=== PATIENT | male | born 1995 | race Caucasian/White ===

== ENCOUNTER 2017-06-23 20:07 | Inpatient (IN) | payer BC, SELFPAY ==
[2017-06-23] MEDS ORDERED: Acetaminophen 325 MG TAB PO PRN (21:08)
[2017-06-23] MEDS ORDERED: Ondansetron HCl/PF 4 MG/2 ML Vial SLOW IVP PRN (21:10)
[2017-06-23] MEDS ORDERED: guaiFENesin ER 600 MG TAB PO SCH (21:15)
[2017-06-23] MEDS: Sodium Chloride 0.9% 1,000 ML IV SCH (21:54)
[2017-06-23] MEDS: Azithromycin 500 MG in Sodium Chloride 0.9% 250 ML 250 ML IVPB SCH (21:54)
[2017-06-23] MEDS ORDERED: cefTRIAXone\\ROCEPHIN 2 GM in Sodium Chloride 0.9% 100 ML IVPB SCH (22:00)
[2017-06-24 05:17] LABS: #Eosinphils 0.2 thou/uL (0.0-0.7); #Lymphocytes 2.1 thou/uL (1.20-3.40); #Monocytes 1.2 thou/uL (0.11-0.59); #Neutrophils 8.2 thou/uL (1.40-6.50); %Basophils 0.2 % (0.0-1.0); %Eosinophils 1.3 % (0.0-10.0); %Lymphocytes 17.8 % (28.0-48.0); %Monocytes 10.6 % (0.0-4.0); Hematocrit 41.6 % (42.0-52.0); Mean Platelet Volume 6.6 fL (7.4-10.4); Red Blood Cell (RBC) Count 4.59 mill/uL (4.00-5.20); White Blood Cell (WBC) Count 11.6 thou/uL (4.8-10.8)
[2017-06-24] MEDS: guaiFENesin ER 600 MG TAB PO SCH ×2 (08:05→19:21)
[2017-06-24] MEDS: Sodium Chloride 0.9% 1,000 ML IV SCH ×3 (08:07→16:30)
[2017-06-24] MEDS ORDERED: methylPREDNISolone Sod Succ/PF 125 MG/2 ML VIAL IVP STA (10:15)
[2017-06-24] MEDS ORDERED: Fentanyl 100 MCG/2 ML VIAL SLOW IVP SCH (10:15)
[2017-06-24] MEDS ORDERED: Ketorolac Tromethamine 30 MG/ML VIAL IVP PRN (10:16)
--- NOTE | 2017-06-24 10:19 | RAD ---
PA AND LATERAL CHEST XRAY: DATE: 06/24/17. HISTORY: Pulmonary mass. COMPARISON: None available. FINDINGS: There is an vague patchy opacity seen within the right hilar region on the frontal projection which i s not well visualized on the lateral view but is worrisome for pneumonia. The left lung is clear. H eart and mediastinal structures are within normal limits. There is right convex curvature of the tho racic spine. IMPRESSION: 1. Pneumonia right mid lung zone which is not well seen on the lateral view. Followup to complete r esolution is recommended. 2. Mild right convex scoliosis thoracic spine. POS: [facility]
[2017-06-24] MEDS ORDERED: Sterile Water 10 ML ONE (10:24)
[2017-06-24] MEDS ORDERED: Ketorolac Tromethamine 30 MG/ML VIAL IVP SCH (10:30)
[2017-06-24] MEDS: Piperacillin/Tazobactam 4.5 GM in Sodium Chloride 0.9% 100 ML IVPB SCH ×2 (12:32→17:39)
[2017-06-24] MEDS: HYDROcodone/Acetaminophen 5/325 mg Tablet PO PRN ×2 (12:36→19:19)
--- NOTE | 2017-06-24 14:01 | CT ---
CHEST CT WITH IV CONTRAST: DATE: 06/24/17. COMPARISON: None. HISTORY: Pulmonary mass, pneumonia. TECHNIQUE: Serial axial CT imaging obtained at 5 mm intervals from the thoracic inlet through the upper abdomen with IV contrast. Coronal reformatted imaging obtained. FINDINGS: Mildly enlarged axillary node on the right noted measuring up to 1 cm. Mildly enlarged pretracheal l ymph node measures 1.1 cm in short axis dimension. Mild right hilar alejandro prominence present, measuring in the 1 cm range in short axis dimension. No l eft hilar adenopathy. Prominent subcarinal node measures in the 1.3 cm range. The imaged upper abdomen appears grossly unremarkable. No pericardial or mediastinal fluid. No left pleural effusion seen. There is a small right pleural effusion present with adjacent atelectatic change involving the inferi or aspect of the right lower lobe. There is a lobulated mass-like area of focal opacity within the right lower lobe posteriorly, abuttin g the above-described pleural effusion. This mass-like area of focal opacity measures 2.9 x 2.2 x 3. 0 cm. Centrally, it demonstrates a lobulated hypodensity, best seen on the coronal image 1 of 3. No endobronchial lesion is seen. No pneumothorax is evident on either side. The left upper lobe, le ft lower lobe, right upper lobe, and right middle lobe appear grossly unremarkable. Of note, the pul monary parenchyma adjacent to the mass likely area of posterior right lower lobe parenchymal opacity demonstrates hazy increased density. Osseous structures appear unremarkable. Vascular structures appear patent. There is a mild degree of scoliotic curvature of the thoracic spine. There is a mild area of superio r end plate irregularity involving the T11 and T12 vertebral bodies suggesting old fractures and/or S chmorl's nodes. IMPRESSION: Focal area of irregular mass-like opacity within the posterior aspect of the right upper lobe with merino rrounding inflammatory reticulonodular density. This abuts a small right pleural effusion. The most likely etiology for this is a focal area of necrotizing pneumonia with possible developing pulmonary abscess and adjacent parapneumonic effusion. Necrotizing pneumonia can be seen with typical and atyp ical organisms, including tuberculosis. Short-term followup imaging following treatment is advised to exclude the unlikely possibility of a p ulmonary neoplastic process. The lymphadenopathy noted in the chest is likely reactive in nature. Results of the study discussed with Dr. Moore at approximately 11:30 a.m. 06/24/17. CODE CR POS: [facility]
--- NOTE | 2017-06-24 15:06 | CON ---
DATE OF CONSULTATION: 06/24/2017 CONSULTING PHYSICIAN: Harlan Moore M.D. REASON FOR CONSULTATION: Potential lung mass. HISTORY OF THE PRESENT ILLNESS: This is a 21-year-old male who is a student at [employer]. He presen camila to the [facility] emergency room yesterday complaining of cough for the last week prior to evaluat ion, he had developed right-sided back pain. This morning, that pain has now spread to the inferior aspect of his anterior chest on the right. He has had some subjective fever. PAST MEDICAL HISTORY: Unremarkable. PAST SURGICAL HISTORY: None. ALLERGIES: None. MEDICATIONS PRIOR TO ADMISSION: None. SOCIAL HISTORY: Nonsmoker. Does not consume alcohol. He is a college student at [employer]. REVIEW OF SYSTEMS: He has had subjective fever and chills, he had right-sided chest pain other than his 12 point review of systems is negative. PHYSICAL EXAMINATION: VITAL SIGNS: Temperature 99.0, pulse 89, respirations 20, O2 sat 96%, blood pressure 112/72. GENERAL: He is in pain. He is difficult to examine secondary to the pain. HEENT: Pupils react. Sclerae are anicteric. Oropharynx is clear. NECK: No JVD. LUNGS: He has diminished breath sounds in the right base compared to the left. No crackles. CARDIAC: S1 and S2 regular, without murmur. ABDOMEN: Soft, nontender. EXTREMITIES: No edema. LABORATORY DATA AND X-RAY FINDINGS: White blood cell count 11.6, hematocrit 41.6, and platelet count 254. Chemistries: Sodium 138, potassium 3.9, chloride 98, CO2 28, BUN 16, creatinine 0.8, and gluc ose 106. CT of the chest from [facility] emergency room demonstrated a 2-3 cm area of consolidation t hat is rounded sitting on top of a small pleural effusion on the right. He has some subcarinal lymph adenopathy. ASSESSMENT: I suspect the patient has pneumonia and has developed a parapneumonic pleural effusion a nd possibly even an empyema. I am less suspicious of this being malignancy given the time course of illness. RECOMMENDATIONS: 1. Dr. Moore has ordered a repeat CT scan today. If the effusion has increased in size, it may shashi ant a thoracentesis. Right now, the fluid is so small that it would be difficult to tap this based o n the earlier CT scan. 2. Continue IV antibiotics - Rocephin and Zithromax should be fine. 3. Add IV steroids. 4. Pain medication. Thank you for the referral. I will follow.
--- NOTE | 2017-06-24 15:11 | HP ---
DATE OF ADMISSION: 06/23/2017 CHIEF COMPLAINT: Right lower lobe pneumonia with right lower lobe mass and right pleural effusion. 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 He is also in the [employer] who has been noticing over the last month an increasing per sisting cough. It was mainly at night and he would continue with PT and his usual activities over th e next 3 weeks until finally he was noticing increasing shortness of breath and having sweats [facility]. He pushed to this and did a 6-mile run several days ago. He started to have actually right-sided back pain that was very annoying and finally went into [facility] care on the day of admission for fu rther evaluation of actually the back pain. His cough was nonproductive. His fever and sweats were mainly at night. He noticed increased fatigue and need for sleep in [facility] care and got a chest x -ray, which revealed the right lower lobe mass and infiltrate with which they then got a CAT scan, wh ich further delineated a right pulmonary effusion, a 3 cm right lower lobe mass and secondary consoli dation/atelectasis. He has begun running fever; however, more indicative of pneumonia. His white co unt, however, has remained low at 11,000. [facility] contacted Dr. Moore, who works as there observation specialist who elected to admit him for further evaluation. PAST MEDICAL HISTORY: The patient had no prior hospitalizations. He is not fractured any bones. He has had a couple of stitches. He had no prior surgeries. Diagnosis of asthma for which he has not been compliant with his inhalers. SOCIAL HISTORY: He is single, sophomore in [employer] major in [employer]. Does n ot smoke or drink alcoholic beverages. ALLERGIES: He has no known drug allergies. REVIEW OF SYSTEMS: CONSTITUTIONAL: Finally admits to fever, malaise and sweats. HEENT: Denies headaches, eye discharge, pain in nose, ears or mouth, or lesions. NECK: Pain free with normal range of motion. No masses. CHEST: Significant for the right-sided pain with motion and deep breath and cough, but it is nonprod uctive. HEART: Denies palpitations, tachycardia or chest pain in the cardiac area. ABDOMEN: Soft, nontender. He denies nausea, vomiting or diarrhea. GENITOURINARY: Denies pain with urination or frequency. MUSCULOSKELETAL: Denies any muscle or joint pain, edema or redness. LYMPHATICS: Denies any edema. NEUROLOGIC: He has trouble with mentation focusing this study, but denies headaches, blurred vision, hallucinations or delusions. SKIN: Denies acute rashes or lesions. MEDICATIONS: None. Does not use inhalers previously recommended by his shield operator. PHYSICAL EXAMINATION: VITAL SIGNS: Blood pressure 101/58, pulse 81, respirations 18, temperature 98.8. He weighs 167 poun ds. GENERAL: Generally well-developed, well-nourished male, alert, oriented, and cooperative. HEENT: Normocephalic and atraumatic. Pupils equal, round, and reactive to light. Sclerae are clear , pharynx clear. NECK: Supple, trachea midline, no mass. CHEST: With actually good breath sounds bilaterally. Unable to appreciate rales, rhonchi, slightly diminished breath sounds on the right with dull percussion. HEART: Regular rate and rhythm without murmur. ABDOMEN: Soft, nontender, without organomegaly. GENITOURINARY: Deferred. No hernia. EXTREMITIES: Without clubbing, cyanosis, or edema. Normal range of motion present. Symmetrical mus cular tone development noted. SKIN: Without acute rashes or lesions. NEUROLOGIC: Cranial nerves are intact. Gait and cerebellar function untested at this time. Sensory exam is intact. Mental status is clear. LABORATORY AND X-RAY FINDINGS: Lab work from admission shows WBC 11.3, hemoglobin 13.4, hematocrit 3 9.7, platelets at 207. Sodium 138, potassium 3.9, chloride 98, CO2 28, BUN 16, creatinine 0.8. Ches t x-ray showed a rounded density in the right perihilar region with moderate right pleural effusion a nd moderate scoliosis. CT of the chest revealed a 3 cm right lower lobe mass with right pleural effu vika, pulmonary consolidation in the right lung base, initially thought to be atelectasis, but with r egular fever at this point, it was felt to be secondary pneumonia. ASSESSMENT: 1. Right lower lobe mass. 2. Right pleural effusion. 3. Secondary right lower lobe pneumonia. 4. History of asthma. 5. Scoliosis. PLAN: Continue IV antibiotics until cultures returned with more specific treatment. Continue DuoNeb treatments, continue supportive care. Pulmonary consultation to evaluate the possibility of tapping the effusion and/or bronchoscoping and getting a biopsy and oncology consultation for further evalua tion as well. We will treat with antipyretics and antiemetics as needed and serial reevaluation.
--- NOTE | 2017-06-24 17:28 | CON ---
DATE OF CONSULTATION: 06/24/2017 REASON FOR CONSULTATION: Abnormal chest imaging. HISTORY OF PRESENT ILLNESS: The patient is a 21-year-old member of the [employer], an d sophomore at [employer], who was admitted for further evaluation of chest pain and fever. 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 On , he developed the abrupt onset of f ever, chills, sweats, and increasing back pain with a possible slight pleuritic component. A chest x -ray was performed and showed a probable pneumonia in the right mid lung zone. He was admitted for f urther evaluation and treatment. He has been placed on broad spectrum antibiotics and a CT scan of t he chest has been performed. The CT scan of the chest did confirm a mass-like infiltrate abutting th e pleura in the right pleura in the right lower lobe associated with a pleural effusion. The mass-li ke infiltrate looks more inflammatory/infectious than malignant. There are a few small mediastinal l ymph nodes measuring up to 1.3-1.5 cm. I am asked to see the patient to provide further management r ecommendations from an oncologic standpoint. PAST MEDICAL HISTORY: ALLERGIES: None. MEDICATIONS: None chronically. MEDICAL ILLNESS: There is a history of asthma with no other significant medical problems. SURGERY: No significant surgical procedures. SOCIAL HISTORY: He is a [place] [employer] sophomore [place] [address]. His mother and father are present durin g the evaluation. Does not smoke or drink excessively. REVIEW OF SYSTEMS: Except as mentioned in the history of present illness, he denies significant card iopulmonary, GI, , musculoskeletal, or neurological complaints. PHYSICAL EXAMINATION: VITAL SIGNS: Temperature 99.0, pulse 89 and regular, respirations 20, blood pressure 112/72. GENERAL: The patient is a well-developed and well-nourished young man in mild distress, complaining of some back pain. He is slightly lethargic secondary to analgesic medication. However, he is appro priate in conversation. HEENT: Extraocular movements are intact. Pupils equal, round, and reactive to light. NECK: Supple. LUNGS: There are decreased breath sounds on the right lower chest. CARDIOVASCULAR: Regular rate and rhythm without murmur, rub, gallop, or click. ABDOMEN: No tenderness, organomegaly, masses, bruits or ascites. EXTREMITIES: No clubbing, cyanosis or edema. SKIN: Normal. LYMPH: No adenopathy. MUSCULOSKELETAL: No active arthritis. NEUROLOGIC: No focal findings. Cranial nerves II-XII are grossly intact. LABORATORY: White blood cell count 11.6, hemoglobin 13.6, and platelet count 254,000. White blood c ell differential shows 70 neutrophils, 17 lymphocytes, 10 monocytes, 1 eosinophil, and 1 basophil. IMAGING: See history of present illness. IMPRESSION: Abrupt onset of fever, chills, and right-sided chest pain associated with a dry cough. The clinical setting and imaging as described above is most consistent with pneumonia with either a p eripneumonic effusion or empyema. The mass-like infiltrate, when discussed with Radiology, is most c onsistent with an inflammatory/infection as opposed to tumor. RECOMMENDATIONS: As the findings are most consistent with an infectious process, I would recommend c ontinued IV antibiotics. Unfortunately, there is no evidence of malignancy at present. Suggest a pu lmonary consultation if not already obtained for further evaluation of the effusion. Infectious Dise ase consultation might also be considered. Thanks very much for allowing me to provide my recommendations. I will follow as needed.
[2017-06-24] MEDS: Azithromycin 500 MG in Sodium Chloride 0.9% 250 ML 250 ML IVPB SCH (23:10)
[2017-06-25] MEDS: Piperacillin/Tazobactam 4.5 GM in Sodium Chloride 0.9% 100 ML IVPB SCH ×5 (00:45→23:16)
[2017-06-25] MEDS: Sodium Chloride 0.9% 1,000 ML IV SCH ×4 (03:00→19:52)
[2017-06-25 06:27] LABS: ALT (SGPT) 17 U/L (8-55); AST (SGOT) 15 U/L (10-45); Alkaline Phosphatase 72 U/L (Less than 750); Anion Gap 13 mmol/L (10-20); BUN (Urea Nitrogen) 16 mg/dL (8.4-21.0); Bilirubin, Total 0.4 mg/dL (0.2-1.2); Calc. Creatinine Clearance 145 mL/min (70-130); Calcium 9.3 mg/dL (7.8-10.44); Carbon Dioxide 25 mmol/L (22-29); Chloride 107 mmol/L (98-107); Estimated GFR-MDRD Greater than 90; Globulin 3.2 g/dL (2.4-3.5); Protein, Total 6.9 g/dL (6.0-8.3)
[2017-06-25 06:37] LABS: Band 6 % (5-11); Hematocrit 40.8 % (42.0-52.0); Mean Platelet Volume 6.7 fL (7.4-10.4); Neutrophil 89 % (31-61); Red Blood Cell (RBC) Count 4.49 mill/uL (4.00-5.20); White Blood Cell (WBC) Count 25.1 thou/uL (4.8-10.8)
[2017-06-25] MEDS: HYDROcodone/Acetaminophen 5/325 mg Tablet PO PRN ×2 (07:03→23:14)
[2017-06-25] MEDS: guaiFENesin ER 600 MG TAB PO SCH ×2 (07:03→21:33)
[2017-06-25] MEDS: Benzonatate 100 MG CAP PO PRN (07:03)
--- NOTE | 2017-06-25 12:43 | PRG ---
DATE OF SERVICE: 06/25/2017 Judd feels better this morning. No acute complaints. PHYSICAL EXAMINATION: VITAL SIGNS: Temperature is 98.3, pulse 99, respirations 16, O2 saturation 98%, blood pressure 109/6 3. HEENT: Unremarkable. NECK: No JVD. LUNGS: Mildly diminished breath sounds in the right base and some crackles there. Clear on the left . CARDIAC: S1 and S2 regular. ABDOMEN: Soft. EXTREMITIES: No edema. LABORATORY DATA: White blood cell count 25, hematocrit 40, platelet count 309. Sodium 141, potassiu m 3.8, BUN 16, creatinine 0.8, glucose 189. ASSESSMENT 1. Pneumonia. 2. Small parapneumonic pleural effusion. 3. Hyperglycemia secondary to steroids for the pleurisy. PLAN: 1. I would recommend continuing the IV antibiotics. 2. Recheck a chest x-ray tomorrow to make sure the effusion is not increasing. 3. Hopefully can go home by tomorrow or Monday if he is doing well. He will need approximately 14 days of antibiotics and will need to lay off physical training with the [employer] at [employer] for e rest of the semester.
--- NOTE | 2017-06-25 13:31 | PRG ---
DATE OF SERVICE: 06/25/2017 SUBJECTIVE: The patient had a decent night. I did get a phone call this morning for cough. I gave him some Tessalon Perles and that did seem to work. He is still having some pain in his chest; howev er, he is getting medication for that. His dad is at bedside and states he did ambulate and little b it yesterday, and he did get up in the chair. OBJECTIVE: GENERAL: Upon evaluation, he is awake, he is alert. He is on oxygen. VITAL SIGNS: His blood pressure is 109/60, pulse 100 and respirations 20. He is afebrile. NECK: Supple with no increased JVP or carotid bruit. Carotid had good upstroke with no thyromegaly. COR: Regular rate and rhythm with normal first and second heart sounds normal. No murmur, S3, S4 or thrills. CHEST: Few crackles. ABDOMEN: Soft, nontender with normoactive bowel sounds. No bruit or organomegaly. EXTREMITIES: No edema or cyanosis. Palpable pedal pulses. SKIN: There is no evidence of ulcers lesion or rash. NEUROLOGIC: He is awake, alert and oriented to person, place and time. LABORATORY DATA: His CBC showed a white blood cell of 25.1, his hemoglobin and hematocrit is 13.3 an d 40.8. His platelets are 309. His chemistry showed elevated glucose of 189. ASSESSMENT: 1. Pneumonia with effusion. 2. Para-pneumothorax versus the empyema. 3. No evidence of cancer. PLAN: 1. We will continue the same current treatment. We will follow up with a chest x-ray, CBC and CMP i n the morning. 2. I have encouraged the patient to ambulate and sit up in the chair during the day and work on ____ cough and deep breathing. The patient's dad verbalized understanding and all questions answered to satisfaction.
[2017-06-25] MEDS ORDERED: Metoprolol Tartrate 25 MG TAB PO SCH (16:45)
[2017-06-25] MEDS: Azithromycin 500 MG in Sodium Chloride 0.9% 250 ML 250 ML IVPB SCH (21:32)
[2017-06-26] MEDS: Benzonatate 100 MG CAP PO PRN ×3 (02:07→16:16)
[2017-06-26] MEDS: Sodium Chloride 0.9% 1,000 ML IV SCH ×4 (02:34→23:12)
[2017-06-26] MEDS: Piperacillin/Tazobactam 4.5 GM in Sodium Chloride 0.9% 100 ML IVPB SCH ×4 (05:09→23:15)
[2017-06-26 05:13] LABS: #Lymphocytes 0.7 thou/uL (1.20-3.40); #Neutrophils 22.5 thou/uL (1.40-6.50); %Eosinophils 0.1 % (0.0-10.0); Hematocrit 38.3 % (42.0-52.0); Mean Platelet Volume 6.8 fL (7.4-10.4); Red Blood Cell (RBC) Count 4.22 mill/uL (4.00-5.20); White Blood Cell (WBC) Count 24.2 thou/uL (4.8-10.8)
[2017-06-26 05:45] LABS: ALT (SGPT) 20 U/L (8-55); AST (SGOT) 19 U/L (10-45); Alkaline Phosphatase 68 U/L (Less than 750); Anion Gap 10 mmol/L (10-20); BUN (Urea Nitrogen) 15 mg/dL (8.4-21.0); Bilirubin, Total 0.2 mg/dL (0.2-1.2); Calc. Creatinine Clearance 186 mL/min (70-130); Carbon Dioxide 26 mmol/L (22-29); Chloride 109 mmol/L (98-107); Estimated GFR-MDRD Greater than 90; Globulin 2.8 g/dL (2.4-3.5); Protein, Total 6.1 g/dL (6.0-8.3)
[2017-06-26] MEDS ORDERED: Ketorolac Tromethamine 30 MG/ML VIAL IVP SCH (06:15)
--- NOTE | 2017-06-26 07:54 | RAD ---
EXAM: CHEST 2 VIEWS: COMPARISON: 06/24/17. HISTORY: Pulmonary mass. Pneumonia. FINDINGS: Stable cardiac silhouette. Stable opacification of the lung parenchyma. Small left and right-sided pleural effusions. Patchy interstitial opacities. Consolidation with air bronchograms in the left l ower lobe. IMPRESSION: 1. Consolidation with air bronchograms left lower lobe. 2. Patchy interstitial opacities. 3. Small bilateral pleural effusions. The degree of opacification in the left lower lobe has develo ped when compared to the prior examination. POS: [facility]
[2017-06-26] MEDS: guaiFENesin ER 600 MG TAB PO SCH ×2 (08:33→20:24)
--- NOTE | 2017-06-26 10:23 | PRG ---
DATE OF SERVICE: 06/26/2017 The patient is doing better. He had some pleurisy yesterday, was [facility] because of some tachycardia that seems to be associated with breathing treatments more than anyth ing else. Looking at his tracings it was sinus tachycardia. PHYSICAL EXAMINATION: VITAL SIGNS: Temperature is 98.4, pulse 111, respirations 24, O2 sat 91% on 2 liters, blood pressure 116/57. HEENT: Unremarkable. NECK: No JVD. CHEST: Fairly clear. ABDOMEN: Soft. EXTREMITIES: No edema. Chest x-ray shows bilateral lower lobe infiltrates and small effusions. ASSESSMENT: Community-acquired pneumonia. PLAN: Continue antibiotics, steroids and pain management. He might be able to go home tomorrow if samy brand has a good day today. I would think any tachycardia that he has is strictly due to his underlying illness and not a cardiac arrhythmia.
[2017-06-26] MEDS ORDERED: Sterile Water 10 ML ONE (12:05)
[2017-06-26] MEDS: Ibuprofen 200 MG TAB PO SCH ×3 (12:21→23:15)
[2017-06-26] MEDS: Azithromycin 500 MG in Sodium Chloride 0.9% 250 ML 250 ML IVPB SCH (21:14)
[2017-06-27] MEDS: Benzonatate 100 MG CAP PO PRN (03:55)
[2017-06-27 05:46] LABS: #Lymphocytes 1.2 thou/uL (1.20-3.40); #Monocytes 0.9 thou/uL (0.11-0.59); #Neutrophils 19.3 thou/uL (1.40-6.50); %Basophils 0.1 % (0.0-1.0); %Eosinophils 0.1 % (0.0-10.0); %Lymphocytes 5.5 % (28.0-48.0); Hematocrit 37.3 % (42.0-52.0); Mean Platelet Volume 6.5 fL (7.4-10.4); Red Blood Cell (RBC) Count 4.09 mill/uL (4.00-5.20); White Blood Cell (WBC) Count 21.4 thou/uL (4.8-10.8)
[2017-06-27 06:02] LABS: Anion Gap 10 mmol/L (10-20); BUN (Urea Nitrogen) 14 mg/dL (8.4-21.0); Calc. Creatinine Clearance 191 mL/min (70-130); Calcium 8.7 mg/dL (7.8-10.44); Carbon Dioxide 25 mmol/L (22-29); Chloride 107 mmol/L (98-107); Estimated GFR-MDRD Greater than 90
[2017-06-27] MEDS: Ibuprofen 200 MG TAB PO SCH ×4 (06:13→23:32)
[2017-06-27] MEDS: Piperacillin/Tazobactam 4.5 GM in Sodium Chloride 0.9% 100 ML IVPB SCH ×4 (06:14→23:32)
[2017-06-27] MEDS: Sodium Chloride 0.9% 1,000 ML IV SCH (06:14)
[2017-06-27] MEDS: guaiFENesin ER 600 MG TAB PO SCH ×2 (08:19→20:28)
[2017-06-27] MEDS: HYDROcodone/Acetaminophen 5/325 mg Tablet PO PRN (08:20)
--- NOTE | 2017-06-27 08:37 | PRG ---
DATE OF SERVICE: 06/27/2017 The patient is still coughing. He does have a headache today, probably secondary to coughing. He is still short of breath, he is still wheezing. However, he is not coughing near as much as he was yes terday. PHYSICAL EXAMINATION: GENERAL: He is awake, alert, and oriented at his bedside. VITAL SIGNS: Blood pressure 120/60, pulse 88, respiration 16, he is afebrile. NECK: Supple with no increased JVP or carotid bruit. Carotid had good upstroke with no thyromegaly. COR: Regular rate and rhythm. CHEST: Scattered wheezing. ABDOMEN: Soft, nontender with normoactive bowel sounds. There is no bruit or organomegaly. EXTREMITIES: No edema or cyanosis. Palpable pedal pulses. SKIN: There is no evidence of ulceration lesion, or rash. NEUROLOGIC: He equal hand grasp bilaterally. PSYCHIATRIC: Alert and oriented to person, place, and time. LABORATORY DATA: White blood cells 21.4, H&H is 12.1 and 37.3, platelet is 325. ASSESSMENT: 1. Pneumonia. 2. Asthma. PLAN: 1. We will change Solu-Medrol to 40 mg IV b.i.d. 2. We will get out of bed and ambulate. 3. We will check a chest x-ray and CBC in the morning. 4. Hopefully, the patient will be able to go home within the next few days.
--- NOTE | 2017-06-27 10:05 | PRG ---
DATE OF SERVICE: 06/27/2017 SUBJECTIVE: He feels better. He is having less chest pain. PHYSICAL EXAMINATION: VITAL SIGNS: On exam, temperature 97.7, pulse 68, respirations 16, O2 sat 90% on 2 liters, blood pre ssure 120/60. HEENT: Unremarkable. NECK: No JVD. LUNGS: Slightly diminished breath sounds at the bases. CARDIAC: S1 and S2 regular. ABDOMEN: Soft. EXTREMITIES: No edema. LABORATORY DATA: White blood cell count 21, hematocrit 37, and platelet count 325. Sodium 138, pota ssium 3.9, chloride 107, CO2 25, BUN 14, creatinine 0.7, glucose 144. ASSESSMENT: Pneumonia. RECOMMENDATIONS: 1. Switch him over to oral azithromycin. 2. Agree with steroid taper. 3. Discontinue IV fluids. 4. Likely can go home as early as tomorrow.
--- NOTE | 2017-06-27 14:11 | PQF ---
CLINICAL DOCUMENTATION IMPROVEMENT CLARIFICATION FORM: ICD-10 Updated PLEASE DO AN ADDENDUM TO THE PROGRESS NOTE WITH ANY DOCUMENTATION UPDATES OR ADDITIONS AND CARRY THROUGH TO DC SUMMARY. THANK YOU. DATE: 06/27/17 ATTN: Dr. Moore Please exercise your independent, professional judgment in responding to the clarification form. Clinical indicators are provided on the bottom of this form for your review Please check appropriate box(s): [ ] Empirically treating Gram Negative Pneumonia [ ] Empirically treating Anaerobic Pneumonia [ ] Pneumonia secondary to (specify organism / underlying disease) [ ] Simple Pneumonia (community acquired - nosocomial) [ ] Pneumonia of unknown etiology [ x ] Other diagnosis __atypical pneumonia [ ] Unable to determine For continuity of documentation, please document condition throughout progress notes and discharge summary. Thank You. CLINICAL INDICATORS - SIGNS / SYMPTOMS / LABS H&P: WBC 11.3 R PLEURAL EFFUSION SECONDARY R LL PNEUMONIA PULMONARY PN 06/26: COMMUNITY-ACQUIRED PNEUMONIA RISKS: H&P: HX OF ASTHMA PN 06/25: PNEUMONIA WITH EFFUSION TREATMENT: CPOE 06/24: ZOSYN 4.5 GM 100ML IV Q6 HR CPOE 06/27: ZITHROMAX 250MG PO DAILY Thank you, Lsia (This form is maintained as a part of the permanent medical record) 2015 [employer]. All Rights Reserved Lisa Baker RN, BSN [email or web address] Office: [phone] [facility]
[2017-06-28 05:15] LABS: #Lymphocytes 1.4 thou/uL (1.20-3.40); #Monocytes 0.8 thou/uL (0.11-0.59); #Neutrophils 15.5 thou/uL (1.40-6.50); %Basophils 0.2 % (0.0-1.0); %Eosinophils 0.1 % (0.0-10.0); %Lymphocytes 8.1 % (28.0-48.0); %Monocytes 4.4 % (0.0-4.0); Hematocrit 38.9 % (42.0-52.0); Mean Platelet Volume 6.4 fL (7.4-10.4); White Blood Cell (WBC) Count 17.8 thou/uL (4.8-10.8)
[2017-06-28] MEDS: Piperacillin/Tazobactam 4.5 GM in Sodium Chloride 0.9% 100 ML IVPB SCH (05:19)
[2017-06-28] MEDS: Ibuprofen 200 MG TAB PO SCH (05:19)
[2017-06-28] MEDS ORDERED: Ibuprofen 200 MG TAB PO PRN (07:53)
[2017-06-28] MEDS: guaiFENesin ER 600 MG TAB PO SCH ×2 (08:35→20:24)
[2017-06-28] MEDS: Amoxicillin/Potassium Clav 875 MG TAB PO SCH ×2 (08:35→20:24)
[2017-06-28] MEDS: Azithromycin 250 MG TAB PO SCH (08:35)
[2017-06-28] MEDS: predniSONE 20 MG TAB PO SCH ×2 (08:35→20:24)
--- NOTE | 2017-06-28 09:03 | RAD ---
TWO VIEW CHEST: History: Pneumonia follow up. Comparison: 06-26-17 FINDINGS: There continues to be streaky confluent infiltrate in the left posterior lung base. There continues t o be evidence of small bilateral effusions. Lungs remain well aerated and clear. IMPRESSION: No significant interval change. POS: [facility]
--- NOTE | 2017-06-28 10:10 | PRG ---
DATE OF SERVICE: 06/28/2017 He has had problems with bradycardia overnight. He says his chest pain is better and he is not short of breath. PHYSICAL EXAMINATION: VITAL SIGNS: Temperature is 98.1, pulse is between 44 and 57, O2 sat 95% on 2 liters, blood pressure 126/65. HEENT: Unremarkable. NECK: No JVD. CHEST: Clear without wheezing or crackles. CARDIAC: S1, S2, bradycardic. ABDOMEN: Soft. EXTREMITIES: No edema. LABORATORY DATA: White blood cell count 17.8, hematocrit 38.9, platelet count 363. Sodium 130, pota ssium 3.9, chloride 107, CO2 25, BUN 14, creatinine 0.7, glucose 144. His chest x-ray is clearing. ASSESSMENT: 1. Pneumonia, which is improved. 2. Bradycardia - this may be his baseline. 3. Possible underlying sleep apnea. PLAN: 1. Dr. Troncoso is going to evaluate the patient today. The EKG and echocardiogram have already been pe rformed. 2. The patient was switched to oral antibiotics and looks safe to discharge from a pulmonary standpo int provided the cardiology issues are clear. 3. He will need a sleep study as an outpatient.
--- NOTE | 2017-06-28 11:08 | CON ---
DATE OF CONSULTATION: 06/28/2017 CARDIOLOGY CONSULTATION NOTE INDICATION FOR CONSULTATION: Bradycardia in 21-year-old patient. HISTORY OF PRESENT ILLNESS: This is a very otherwise healthy 21-year-old patient who was admitted on 06/23/2017, who what appeared to be pneumonia. He has been treated by antibiotic therapy. He has h ad some tachycardia when he first arrived, most likely due to fever and due to illness. He has been doing well and has been recovering, but does say he has some fatigue. His father is here at the [facility] and said he does sleep a lot sometimes and falls asleep during class but at this time, it does no t appear to be an issue. He is fatigued, but has been lying in bed for several days now and has been sick. He had bradycardia last night with heart rates in the 40s. This morning, his heart rate was in the 50s. When he moves around, his heart rate was in the 70s. He is a very active young man, who participates in the chore. He does do a lot of exercise and running and most likely this is an ayana cation that most likely he is getting better and most likely intrinsically he does not have any signi ficant tachycardia and there are no significant EKG changes to indicate any other abnormalities that would indicate any bundle branch blocks that may indicate some type of endocarditis or infection subv alvular that may cause conduction problems. He does not appear to be septic at this time. His EKG d id show some T-wave inversions in leads V2 and V3 with RSR prime in V1, but this is just nonspecific findings with T-wave changes and does not appear to be any evidence of ischemia or any other problems . He has had these EKG changes also on previous EKGs since he has been in the hospital. Otherwise, there are no significant abnormalities noted on the EKG. PAST MEDICAL HISTORY: Relatively unremarkable. His father said he had problem since he was a child and has had mitral valve prolapse, but it was felt that he would grow out of these and for whatever r jennifer, I do not see in any case he has any mitral valve prolapse, so echocardiogram was performed tokevin spencer. Otherwise, his past medical history has been relatively unremarkable. He has had no significant previous illnesses. He has history of asthma and has infrequent flareups. He has had no significan t surgical procedures. SOCIAL HISTORY: There is no alcohol or tobacco abuse, as noted above. He is a student of [employer] and he is a member of [employer] and does significant amount of exercise. REVIEW OF SYSTEMS: Unremarkable except what was noted in the history of present illness. He denied any other significant problems except for sleepiness. ALLERGIES: None. MEDICATIONS PRIOR TO ADMISSION: None. At this time, his medications still includes Augmentin, Zithr omax. He is on Tessalon Perles, Mucinex, ibuprofen. He has also been giving some [place] as well as s ome DuoNebs and Zofran. He has been placed on prednisone. PHYSICAL EXAMINATION: GENERAL: Reveals a well-developed, well-nourished gentleman who is in no acute distress. VITAL SIGNS: His heart rate is anywhere between 40-70 and shows sinus rhythm without any significant interventricular abnormalities and no significant conduction problems otherwise. He is afebrile. O 2 saturations are in the 90s. Respiratory rate is 16. Blood pressure is 126/65. HEENT: Shows head to be normocephalic, atraumatic. Carotid pulses are present. There were no bruit s. There is no JVD. The thyroid is not enlarged. Oral mucosa was pink and moist. CHEST: Shows some right basilar rhonchi, but these are very mild and otherwise he has good inspirati on and expiration and I do not hear any wheezing. CARDIOVASCULAR: Exam reveals regular rate and rhythm with normal S1 and S2. There is no S3 or S4. There were no significant murmurs, heaves, thrills, bruits or rubs. ABDOMEN: Soft and nontender with positive bowel sounds. No organomegaly or masses noted. Femoral p ulses are present. EXTREMITIES: Showed no clubbing, cyanosis or edema. No indication of endocarditis for any petechiae or any other abnormalities or nodules. NEUROLOGIC: Neurologically, the patient appears to be fully intact with normal strength and tone. SKIN: Warm and dry. LABORATORY DATA AND IMAGING: Continues to show elevated WBC. Today, his white blood cell count was 17.8 and it had actually peaked on 06/25/2017 to 25.1, hemoglobin is 13, platelet count is 363,000. His creatinine is stable at 0.74, potassium 3.9. Blood sugar has been slightly elevated. This may b e due to medications he has been given. Blood sugar was 144 and on admission, at least 2 days ago, i t was 189. TSH level was low at 0.275. Chest x-ray still showed some mild effusions bilaterally, bu t these are most likely consistent with his previous pneumonia. Echocardiogram was performed today a nd shows normal ejection fraction, no evidence of mitral valve prolapse and valvular structures are n ormal. He did have trace pulmonary mitral and tricuspid valve regurgitation, all of which was felt t o be within normal limits. He had a trivial pericardial effusion also which was in limits and normal ejection fraction. IMPRESSION 1. Otherwise, healthy gentleman with recent and ongoing pneumonia which is resolving and responding to medications with bradycardia. This may be getting more toward his baseline and with heart rates i n the 40s, he has been asymptomatic and this is why he was lying down, sleeping and at rest. Once he moves around, the heart rate picks up. Since he is asymptomatic and this is a sinus rhythm, this is most likely of no concern and most likely this is a normal variant for this patient and would not be concerned at this time with heart rate in the 40s while the patient is lying down, resting or sleepi ng. 2. Pneumonia, this is being dealt with rather primary care service and polysomnographer. 3. History of mitral valve prolapse. I no longer see if there is any mitral valve prolapse on the e chocardiogram. 4. Some complaint about lethargy or problems sleeping. He may have some degree of fatigue from not sleeping enough. He himself thinks perhaps he does not sleep enough at night and does not get enough rest and falls asleep during some of his classes. He does not appear to have sleep apnea nor any si gnificant indication that he has narcolepsy. Otherwise, he appears to be a healthy young gentleman t hat unfortunately developed some pneumonia and appears to be improving and resolving. From a cardiac standpoint, he is stable and no further cardiac workup would be indicated. Should he have any furth er problems, please do not hesitate to contact me again, but at this time I will sign off.
[2017-06-28 12:32] VITALS: BMI 25.8
[2017-06-29] MEDS: HYDROcodone/Acetaminophen 5/325 mg Tablet PO PRN (02:08)
[2017-06-29] MEDS: Benzonatate 100 MG CAP PO PRN (02:09)
[2017-06-29 05:42] LABS: Band 1 % (5-11); Hematocrit 42.7 % (42.0-52.0); Metamyelocyte 1 % (0-0); Neutrophil 75 % (31-61); Reactive Lymphocytes 1 % (0-10); Red Blood Cell (RBC) Count 4.72 mill/uL (4.00-5.20); White Blood Cell (WBC) Count 15.3 thou/uL (4.8-10.8)
[2017-06-29] MEDS: Amoxicillin/Potassium Clav 875 MG TAB PO SCH (08:44)
[2017-06-29] MEDS: predniSONE 20 MG TAB PO SCH (08:45)
[2017-06-29] MEDS: guaiFENesin ER 600 MG TAB PO SCH (08:45)
[2017-06-29] MEDS: Azithromycin 250 MG TAB PO SCH (08:45)
[2017-06-29 12:28] VITALS: BP 124/60; TEMP 97.8
== END 2017-06-29 12:57 | disposition home or self-care (01) | DRG 194 ==
LOC: T4-A 20:07 → 2NO 06-25 17:00
PROVIDERS: ADMIT Specialist; ATTEND Specialist
DX: J18.9 Pneumonia, unspecified organism (principal); J91.8 Pleural effusion in other conditions classified elsewhere; M41.9 Scoliosis, unspecified; I08.1 Rheumatic disorders of both mitral and tricuspid valves; R91.8 Other nonspecific abnormal finding of lung field; R00.1 Bradycardia, unspecified; J45.909 Unspecified asthma, uncomplicated; R00.0 Tachycardia, unspecified; T38.0X5A Adverse effect of glucocorticoids and synthetic analogues, initial encounter; R73.9 Hyperglycemia, unspecified; J98.4 Other disorders of lung
CPT/HCPCS: 36415; 71020; 71260; 80048; 80053; 84443; 85007; 85025; 85027; 87040; 87070; 87086; 87205; 93005; 93010; 93306; 94640; A4216; J0456; J0696; J1885; J2543; J2920; J2930; J3010; J7050; J7506; J7620

== ENCOUNTER 2017-07-04 13:53 | Inpatient (IN) | payer BC ==
[2017-07-04] MEDS ORDERED: Sodium Chloride 0.9% 10 ML ONE (14:13)
[2017-07-04 14:16] VITALS: BMI 24.0
[2017-07-04] MEDS ORDERED: Benzonatate 100 MG CAP PO PRN (14:19)
[2017-07-04] MEDS: HYDROcodone/Acetaminophen 5/325 mg Tablet PO PRN ×2 (14:38→21:50)
[2017-07-04] MEDS: Sodium Chloride 0.9% 1,000 ML IV SCH ×2 (15:27→23:12)
[2017-07-04] MEDS ORDERED: Lidocaine 1% PF 5 ML VIAL ONE ×2 (15:40→15:43)
[2017-07-04 15:41] LABS: Hematocrit 48.8 % (42.0-52.0); Mean Platelet Volume 6.2 fL (7.4-10.4); Red Blood Cell (RBC) Count 5.35 mill/uL (4.00-5.20); White Blood Cell (WBC) Count 30.5 thou/uL (4.8-10.8)
--- NOTE | 2017-07-04 15:51 | RAD ---
PORTABLE UPRIGHT FRONTAL CHEST RADIOGRAPH 07/04/17 at 1:57 p.m. COMPARISON: 06/28/17 HISTORY: Pneumonia. FINDINGS: There is increased density vertically oriented within the medial aspect of the left lung base, simila r when compared to the 06/28/17 exam. When compared to 06/28/17, there has been interval development of dense opacity in the right base involving the right middle and right lower lobes with obscuration of the right hemidiaphragm, right heart border and right costophrenic angle. IMPRESSION: Stable increased density in the medial left base suggests infectious pneumonitis or aspiration. New d ense pleural and parenchymal opacity within the right lung base suggesting multifocal infectious pneu monitis or aspiration. Followup imaging following treatment advised. POS: [facility]
[2017-07-04 15:58] LABS: ALT (SGPT) 27 U/L (8-55); AST (SGOT) 16 U/L (10-45); Alkaline Phosphatase 67 U/L (Less than 750); Anion Gap 10 mmol/L (10-20); BUN (Urea Nitrogen) 13 mg/dL (8.4-21.0); Calc. Creatinine Clearance 151 mL/min (70-130); Calcium 9.9 mg/dL (7.8-10.44); Carbon Dioxide 33 mmol/L (22-29); Chloride 96 mmol/L (98-107); Estimated GFR-MDRD Greater than 90; Globulin 3.4 g/dL (2.4-3.5); Protein, Total 7.1 g/dL (6.0-8.3)
[2017-07-04 16:00] LABS: BF Reference Range Comment Note:
[2017-07-04 16:10] LABS: Band 5 % (5-11); Neutrophil 79 % (31-61)
--- NOTE | 2017-07-04 16:19 | CT ---
CHEST CT WITHOUT CONTRAST: Date: 07-04-17 Comparison: 06-24-17 History: Empyema, pain. Technique: Serial axial CT imaging is obtained at 5 mm intervals from the thoracic inlet through the upper abdomen without contrast. Coronal reformatted imaging obtained. FINDINGS: This study was performed without contrast media, limiting assessment for lymphadenopathy, limiting as sessment of the imaged viscera and limiting assessment of the vasculature. The imaged upper abdomen appears grossly unremarkable. No left pleural effusion. The left lung is grossly unremarkable. There is no right sided pneumothorax. Prior examination demonstrated a small pleural effusion on the right. The right pleural effusion has markedly increased in volume, now moderate in size. This enlarging right pleural effusion demonstrate s loculation, with components extending into the region of the major fissure inferiorly, as well as i nto the region of the minor fissure. This raises the question of developing empyema. There is partial consolidation/collapse of the adjacent right lower lobe. The prior examination demonstrates a periph eral mass like area of soft tissue density within the posterior aspect of the superior segment right lower lobe. This region is more conspicuous than on the prior examination. Of note, there may be a de gree of hyperdense layering material within the pleural effusion posteriorly, inferiorly on the right , on image 41 suggesting complexity. When compared to the prior examination there are new focal areas of pulmonary parenchymal opacity not ed anteriorly within the right middle lobe, including focal areas of opacity on axial image 35 and 32 anteriorly. There is a similar area of focal opacity along the under surface of the minor fissure on coronal imag e 45. Areas of superior endplate irregularity are again seen at the T12 and L1 levels, evidence of prior fr acture. There are prominent nodes in the right paratracheal/pretracheal region measuring up to 1.3 cm and in the subcarinal region measuring up to 1.4 cm, which may be reactive in nature. IMPRESSION: Enlarging complex and lobulated right sided pleural effusion, suspicious for empyema. Focal opacity i n the right lower lobe concerning for infectious pneumonitis has become more conspicuous. There are n ew areas of peripheral focal opacity in right middle lobe as well. Developing right middle lobe opaci ty could be on the basis of volume loss or infectious pneumonitis. POS: [facility]
[2017-07-04] MEDS: Lidocaine 2% PF 100 mg/5 ml Syringe ONE ×2 (17:02→18:34)
[2017-07-04 17:05] LABS: BF Color Red
[2017-07-04 17:06] LABS: RBC Count-Automated 49000 /cumm
[2017-07-04] MEDS: Clindamycin/D5W 600 MG in Premix Bag 1 BAG IVPB SCH ×2 (17:06→23:59)
[2017-07-04] MEDS: Cefepime 2 GM, Syringe 2.5 ML in Sterile Water 10 ML SLOW IVP SCH (17:48)
[2017-07-04 18:25] LABS: Number Cells Counted-Fluids 100
[2017-07-04] MEDS ORDERED: Cefepime 2 GM in Sodium Chloride 0.9% 100 ML IVPB SCH (21:00)
--- NOTE | 2017-07-04 22:21 | HP ---
DATE OF ADMISSION: 07/04/2017 CHIEF COMPLAINT ON ADMISSION: Pleuritic chest pain with right pleural effusion and pneumonia. HISTORY OF PRESENT ILLNESS: The patient is a 21-year-old [employer] student, who was recently hos pitalized at [facility] for a right pleural effusion and right-sided pneumonia on 06/26 of t his last month. He was treated with IV antibiotics and did quite well, initially being in a great de al of discomfort with pain and then by the time of discharge, he was weak but pain-free. During this post-hospitalization care, he rested until the day prior to admission when he went out, began going to class and walked well at a mile. He noticed that ever since he came back from walking to and from class, he has not felt the same and since that time, he has had progressive shortness of breath and pain in his right rib cage. It hurts worse when he takes a deep breath. He has felt weak, dyspneic, and the pain has continued to increase to the point, where he is in distress. PAST MEDICAL HISTORY: As mentioned above was unremarkable for recent right pleural effusion and pneu monia for which he was hospitalized. He has had no prior hospitalizations. PAST SURGICAL HISTORY: He has had no prior surgery. MEDICATIONS: At the time of admission, the other antibiotics that he was to be completing, i.e., Zit hromax, and Omnicef. ALLERGIES: He has no known drug allergies. SOCIAL HISTORY: [employer]omore [employer] at [employer]. He does not smoke or drink. REVIEW OF SYSTEMS: General: Significant for weakness and pain with inspiration. HEENT: Denies hea daches, blurred vision. Neck: Denies pain with range of motion or mass or swelling. Chest: Has pa in in the right flank area with inspiration and chronic cough. Heart: Denies palpitations, although his heart has been racing. Abdomen: Denies nausea, vomiting, or diarrhea. Genitourinary: Denies blood in urine or stool or painful defecation or urination. Extremities: Denies swelling, painful r carolyn of motion, erythema. Skin: No new rashes or lesions. Neurologic: Neurologically, mentation i s intact. Denies paresthesias. PHYSICAL EXAMINATION: VITAL SIGNS: At the time of admission, weight 172. He is 5 foot 11 inches, blood pressure 97/63, te mperature 98.6, pulse 106, respirations 24, BMI 24. GENERAL: This is a pale male in moderate respiratory distress due to pain. HEENT: Normocephalic and atraumatic. Pupils equal, round, and reactive to light. Extraocular muscl es are intact. TMs, nares, pharynx are clear. NECK: Supple, trachea midline. CHEST: With diminished breath sounds from mid scapula down on the right. HEART: Regular rate and rhythm, tachycardic. ABDOMEN: Soft, nontender, without organomegaly. GENITOURINARY: Deferred. EXTREMITIES: Without clubbing, cyanosis, or edema. SKIN: Without acute rashes or lesions seen, it looks pale. NEUROLOGIC: Cranial nerves are intact. Gait and cerebellar function intact. Deep tendon reflexes 2 +. Sensory exam is intact. Mental status is clear, but anxious. LABORATORY AND X-RAY FINDINGS: Lab work is pending at the time of admission. ASSESSMENT: 1. Pleuritic chest pain. 2. Recurrence of right pleural effusion. 3. Right lower lobe pneumonia. PLAN: Hospitalization for pain management, IV fluids, IV antibiotics, chest x-ray repeat CT scan of the chest and serial reevaluation.
--- NOTE | 2017-07-04 22:54 | CON ---
DATE OF CONSULTATION: 07/04/2017 HISTORY OF PRESENT ILLNESS: Judd Camargo is a 21-year-old gentleman who was recently discharged from the hospital on the . DISCHARGE DIAGNOSIS: Pneumonia, improving. He saw Dr. Anne during his last admission. DISCHARGE MEDICATIONS: Include Augmentin, Diflucan, and some prednisone. History states that the patient is from [place]. He is going to school at [employer], who went to the [facility] with chest pain, shortness of breath, fever, and production of sputum. X-ray and CT was do ne, which revealed a right-sided infiltrate and pleural effusion. Apparently, he was referred to Dr. Moore' office for ongoing evaluation. In the hospital, he receive d Rocephin and Zithromax and IV steroids. It appears at the time of discharge that he was better. Now, he is having significant pleuritic pain , shoulder pain, fever, and chills. PAST MEDICAL HISTORY: Unremarkable for any other major medical problems. He denies any history of d iabetes or hypertension PREVIOUS SURGERIES: None. CHRONIC MEDICATIONS: None until recently. SOCIAL/FAMILY HISTORY: Alcohol and tobacco abuse. He apparently has asthma. PHYSICAL EXAMINATION: VITAL SIGNS: Temperature 98, respiratory rate 27, pulse 98, blood pressure 125/85. CHEST: Decreased breath sounds right lung. Left lung unremarkable. CARDIAC: Normal S1 and S2. ABDOMEN: Soft, no masses. DIAGNOSTIC DATA: Repeat chest x-ray showed large right-sided pleural effusion. IMPRESSION: Right-sided pleural effusion probably pneumonic effusion. PLAN: Clindamycin and Maxipime was added to his steroids. CT of the chest has been ordered. He has got significant done. Dr. Anne will see the patient tomorrow. Further recommendations after reading the CT, etc.
--- NOTE | 2017-07-04 23:18 | OP ---
PROCEDURE PERFORMED: Thoracentesis. INDICATION FOR PROCEDURE: Pleural effusion. PROCEDURE IN DETAIL: Informed consent was obtained from the patient. The right posterior thorax was cleaned with chlorhexidine, 1% Xylocaine was infiltrated into the right ninth intercostal space in t he midscapular line. The pleura was found to be thick, pleura was infiltrated and about 20 mL of tur bid yellow fluid was removed. A stat pH was 7.2. Using an 8-Guamanian catheter, a total of 600 mL of t urbid yellow fluid was removed without any problems. Pleural fluid was sent for appropriate studies including culture, Gram stain and C&S. The patient tolerated the procedure well. The patient is to continue antibiotics.
[2017-07-05] MEDS: Cefepime 2 GM, Syringe 2.5 ML in Sterile Water 10 ML SLOW IVP SCH ×2 (06:07→18:09)
[2017-07-05] MEDS: HYDROcodone/Acetaminophen 5/325 mg Tablet PO PRN ×2 (06:09→19:40)
[2017-07-05] MEDS: Sodium Chloride 0.9% 1,000 ML IV SCH ×3 (06:10→21:52)
[2017-07-05] MEDS: Clindamycin/D5W 600 MG in Premix Bag 1 BAG IVPB SCH ×2 (08:41→16:17)
[2017-07-05] MEDS: Famotidine/PF 20 mg/2ml Vial SLOW IVP SCH (08:42)
--- NOTE | 2017-07-05 09:39 | PRG ---
DATE OF SERVICE: 07/05/2017 SUBJECTIVE: Events from yesterday are noted. He feels better today. PHYSICAL EXAMINATION: VITAL SIGNS: Temperature is 98.0, pulse 94, respirations 20, O2 sat 97%, blood pressure 119/62. HEENT: Unremarkable. NECK: No JVD. LUNGS: Slightly diminished breath sounds in the right compared to left. CARDIAC: S1 and S2 regular. ABDOMEN: Soft. EXTREMITIES: No edema. LABORATORY DATA: Thoracentesis fluid demonstrated an exudate with an LDH of 731, glucose of less vikas n 20, total protein 4.3. He had no organisms on Gram stain. Sodium 135, potassium 4, chloride is 96 , CO2 33, BUN 13, creatinine 0.8, glucose 101. White blood cell count 30, hematocrit 48.8, platelet count 355. ASSESSMENT: 1. Peripneumonic pleural effusion. 2. Recent pneumonia. PLAN: I will get another x-ray today to see if drainage was adequate. We will keep an eye on cultur es. If the x-ray has not improved or the cultures grew out bacteria, then he will need surgical cons ultation and decortication. I spoke to the patient's father on the phone.
--- NOTE | 2017-07-05 10:39 | RAD ---
CHEST PA AND LATERAL: History: 21-year-old male follow up pleural effusion. FINDINGS: Heart size is within normal limits. The left lung is clear. There is smaller right sided pneumothorax with some minimal patchy parenchymal changes in the right lower lobe, probably some subsegmental ate lectasis. IMPRESSION: Persistent but decreased in size right pleural effusion with minimal parenchymal changes in the right base which appears to be less prominent than on the 07-04-17 study. No new process. Stable left chest . POS: [facility]
[2017-07-06] MEDS: Clindamycin/D5W 600 MG in Premix Bag 1 BAG IVPB SCH ×3 (00:04→16:59)
[2017-07-06] MEDS: Cefepime 2 GM, Syringe 2.5 ML in Sterile Water 10 ML SLOW IVP SCH ×2 (05:18→18:40)
[2017-07-06 06:13] LABS: Anion Gap 14 mmol/L (10-20); BUN (Urea Nitrogen) 14 mg/dL (8.4-21.0); Calc. Creatinine Clearance 168 mL/min (70-130); Calcium 9.5 mg/dL (7.8-10.44); Carbon Dioxide 27 mmol/L (22-29); Chloride 103 mmol/L (98-107); Estimated GFR-MDRD Greater than 90
[2017-07-06 06:34] LABS: Band 3 % (5-11); Hematocrit 41.1 % (42.0-52.0); Mean Platelet Volume 6.4 fL (7.4-10.4); Neutrophil 93 % (31-61); White Blood Cell (WBC) Count 32.4 thou/uL (4.8-10.8)
[2017-07-06] MEDS: Sodium Chloride 0.9% 1,000 ML IV SCH ×3 (07:48→20:56)
[2017-07-06] MEDS: Famotidine/PF 20 mg/2ml Vial SLOW IVP SCH (09:38)
--- NOTE | 2017-07-06 10:15 | PRG ---
DATE OF SERVICE: 07/06/2017 ATTENDING PHYSICIAN: Harlan Moore M.D. SUBJECTIVE: The patient had a good night. He does feel much better since they drained fluid. He st ill has a little bit of a cough. PHYSICAL EXAMINATION: GENERAL: Upon evaluation, he is awake, alert, and oriented to person, place and time. VITAL SIGNS: His blood pressure is 140/60, pulse 90, respiration 20. He is afebrile. NECK: Supple with no increased JVP or carotid bruit. Carotid had good upstroke with no thyromegaly. COR: Regular rate and rhythm. CHEST: Symmetrical with a left decreased breath sounds. ABDOMEN: Soft, nontender with normoactive bowel sounds. No bruit or organomegaly. EXTREMITIES: No edema or cyanosis. Palpable pedal pulses. SKIN: There is no evidence of ulcers lesion, or rash. NEUROLOGIC: He is awake, alert, and oriented to person, place, and time. LABORATORY DATA: His CMP is totally normal. His CBC showed increase in his white blood cell count o f 32,000. There is no chest x-ray in the chart. ASSESSMENT: 1. Recent pneumonia. 2. Pleural effusions, status post thoracentesis. PLAN: 1. I spoke at length with the patient and the patient's dad on the phone. We will leave the plan up to pulmonary however, we will continue IV antibiotics. 2. We will add Ancef every 2 hours while awake. 3. We will follow up with a CBC and a PA and lateral chest x-ray in the morning.
--- NOTE | 2017-07-06 14:36 | PRG ---
DATE OF SERVICE: 07/06/2017 SUBJECTIVE: Mr. Camargo feels okay. He is still having a little right-sided chest pain. OBJECTIVE: VITAL SIGNS: Temperature is 98.4, pulse 96, respirations 18, blood pressure 123/56 and O2 sat 97%. HEENT: Unremarkable. NECK: No JVD. LUNGS: He has diminished breath sounds in the right base, some dullness there, left side is clear. CARDIAC: S1 and S2 regular. ABDOMEN: Soft. EXTREMITIES: No edema. LABORATORY AND IMAGING DATA: His pleural fluid cytology was negative. The cultures have not grown a ny organism. His sodium is 139, potassium 4.8, BUN 14, creatinine 0.7 and glucose 155. White blood cell count 32.4, hematocrit 41.1 and platelet count 318. ASSESSMENT: 1. Right peripneumonic effusion. 2. Recent pneumonia. RECOMMENDATIONS: The white count is a little more elevated than I would suspect even for some long s teroids. PLAN: I want to repeat the CT of the chest without contrast to make sure that this effusion is not o rganized since the thoracentesis and to make sure that it is not loculated. If either of these thing s have happened, then he will need decortication.
--- NOTE | 2017-07-06 15:40 | CT ---
CT OF THE THORAX WITHOUT IV CONTRAST: Date: 07/06/17 INDICATION: Chest pain, concern for loculated right pleural effusion. COMPARISON: Prior CT dated 06/24/[address] dated 07/04/17. FINDINGS: There are a few locules of gas within the right-sided pleural effusion consistent with patient's hist ory of recent thoracentesis. There is some hyperdensity seen along the margins of the pleural leaves of the right-sided pleural effusion, again raising suspicion for a complicated pleural effusion such as an empyema. There is improvement in aeration of the right middle lobe with resolution of the airsp dori opacity seen on the comparison exam within this location. Air space consolidation remains within the right lower lobe. The size of the pleural effusion has diminished since the comparison examinatio n on 07/04/17. Left lung remains clear. Unopacified heart and great vessels are unchanged. Visualized upper abdomen reveals a mild amount of retained stool within the colon. No acute osseous abnormality is evident. Mild scoliosis is similar appearing. IMPRESSION: 1. Slight interval decrease in size of the right-sided complicated pleural effusion. A few locules o f gas are seen within the pleural fluid collection consistent with the patient's history of a recent thoracentesis. 2. Persistent consolidation of right lower lobe, concerning for pneumonia. 3. Improved aeration of the right middle lobe, which may reflect improved pneumonia or atelectasis. Findings discussed with Dr. Anne at 1345 hours on 07/06/17. CODE CR. POS: [facility]
--- NOTE | 2017-07-06 22:36 | CON ---
DATE OF CONSULTATION: 07/06/2017 REASON FOR CONSULTATION: Evaluation for right decortication. PERTINENT HISTORY: The patient is a 21-year-old male hospitalized from 2016 through 06/29/2017 for a right-sided pneumonia. He subsequently had recurrence of shortness of breath, cough and fever and was readmitted 2 days ago at which time chest x-ray and CT scan were consistent with a complex, loculated right parapneumonic effusion versus empyema. He underwent thoracentesis by Dr. Nichols, retrieving approximately 500 mL of turbid yellow fluid with low pH and glucose. Cultures on this fluid are still pending. Follow up CT scan today showed some improvement in the right pleural process, however, evidence persisted for residual empyema with associated gas seen in its contents. The patient has remained tachypneic and tachycardic with increasing white blood cell count. The patient is now referred for right decortication. PAST MEDICAL HISTORY: Asthma. PAST SURGICAL HISTORY: None. ALLERGIES: None. SOCIAL HISTORY: Nonsmoker. Nondrinker. FAMILY HISTORY: Noncontributory. REVIEW OF SYSTEMS: No history of diabetes, kidney or liver disease or documented heart disease. LABORATORY AND X-RAY: White blood cell count 32.4. Hemoglobin 13.1. Platelet count 318,000. Creatinine 0.78. CURRENT MEDICATIONS: Cefepime 2 grams IV q.12 hours, clindamycin 600 mg IV q.8 hours, Pepcid 20 mg IV daily, Levaquin 750 mg IV daily, methylprednisolone 20 mg IV q.12 hours, and multiple p.r.n. medications. PHYSICAL EXAMINATION: VITAL SIGNS: Height 71 inches, weight 172 pounds, blood pressure 130/58, heart rate 107, temperature 97.9. GENERAL: Well-developed, well-nourished male, who is fully oriented. He appears in mild distress with frequent cough and tachypnea. HEENT: Grossly unremarkable. NECK: Without JVD or adenopathy. LUNGS: With diminished breath sounds on the right side. HEART: Sinus tachycardia without murmur or rub. ABDOMEN: Soft and nontender, without palpable mass. EXTREMITIES: Without edema. VASCULAR: Palpable radial and ankle pulses bilaterally. NEUROLOGIC: No focal deficits. IMPRESSION: Complex, loculated right parapneumonic empyema. RECOMMENDATIONS: Right decortication to which the patient is in agreement following discussion with his referring protective signal installer and myself. The indications, benefits, alternatives, and risks were explained in detail to the patient and to his father by phone. All questions were answered. The patient agrees to proceed without reservations. ELLE
[2017-07-07] MEDS: Clindamycin/D5W 600 MG in Premix Bag 1 BAG IVPB SCH ×4 (00:06→23:40)
[2017-07-07] MEDS: Cefepime 2 GM, Syringe 2.5 ML in Sterile Water 10 ML SLOW IVP SCH ×2 (05:13→18:09)
[2017-07-07] MEDS: Sodium Chloride 0.9% 1,000 ML IV SCH ×3 (05:22→18:15)
[2017-07-07 06:23] LABS: Band 9 % (5-11); Hematocrit 40.1 % (42.0-52.0); Mean Platelet Volume 6.3 fL (7.4-10.4); Neutrophil 78 % (31-61); White Blood Cell (WBC) Count 28.5 thou/uL (4.8-10.8)
--- NOTE | 2017-07-07 07:53 | RAD ---
PA AND LATERAL VIEWS OF CHEST: Date: 07/07/17 HISTORY: Pleural effusion. FINDINGS/IMPRESSION: The heart size is normal. There has been interval improvement in the right basilar infiltrate and the right pleural effusion since the last exam. There is interval near complete resolution of the infilt rate in the right medial lung base and mild intimal improvement in the right pleural effusion since t he previous study. POS: BUDDYH
--- NOTE | 2017-07-07 09:12 | PRG ---
DATE OF SERVICE: 07/07/2017 This is JOSIE Barrow dictating a progress note for Harlan Moore M.D. SUBJECTIVE: Patient had a good night. He is still coughing. His friends at bedside. He does feel a little bit better. PHYSICAL EXAMINATION: VITAL SIGNS: Upon evaluation, his blood pressure 120/60, pulse 77, respiration 16, he is afebrile. NECK: Supple with no increased JVP or carotid bruit. Carotid had good upstroke with no thyromegaly. COR: Regular rate and rhythm. CHEST: Decreased breath sounds. ABDOMEN: Soft and nontender with normoactive bowel sounds. No bruit or organomegaly. EXTREMITIES: No edema or cyanosis. Palpable pedal pulses. SKIN: There is no evidence of ulcers, lesion, or rash. NEUROLOGIC: He is awake, alert, and oriented to person, place, and time. LABORATORY DATA AND IMAGING: His white blood cell is 28.5. His hemoglobin and hematocrit is 13.2 an d 40.1. His platelet count is 316. Chest x-ray is pending today. ASSESSMENT: 1. Pneumonia. 2. Pleural effusion. 3. Empyema. PLAN: Dr. Solano was asked to see the patient in consultation where he did feel like the patient did need a decortication secondary to his complex empyema. The patient did agree so and his father was updated as well. The patient will undergo surgery today and all questions answered to patient's sati sfaction.
[2017-07-07] MEDS: Famotidine/PF 20 mg/2ml Vial SLOW IVP SCH (09:13)
--- NOTE | 2017-07-07 09:18 | PRG ---
DATE OF SERVICE: 07/07/2017 SUBJECTIVE: He is scheduled for thoracoscopy later today. PHYSICAL EXAMINATION: VITAL SIGNS: Temperature 97.9, pulse 87, respirations 18, O2 saturation 97%, blood pressure 127/61. HEENT: Unremarkable. NECK: No JVD. CHEST: Fairly clear except in the right base where he has diminished breath sounds. CARDIAC: S1 and S2 regular. ABDOMEN: Soft. EXTREMITIES: No edema. LABORATORY DATA: White blood cell count 28.5, hematocrit 40, platelet count 316. Sodium 139, potass ium 4.8, chloride 103, CO2 27, BUN 14, creatinine 0.7, and glucose 155. ASSESSMENT: 1. Right-sided complex effusion/empyema. 2. Status post pneumonia. PLAN: 1. Thorascopic decortication later today. 2. Likely need chest tube drainage afterwards. 3. Continue low dose methylprednisolone with likely discontinuation of this medication over the week end.
[2017-07-07] MEDS ORDERED: Midazolam HCl 2 mg/2 ml Vial ONE (10:10)
[2017-07-07] MEDS ORDERED: Vecuronium 10 MG VIAL ONE ×2 (10:10→16:16)
[2017-07-07] MEDS ORDERED: Fentanyl 100 MCG/2 ML VIAL ONE ×2 (10:10→13:50)
[2017-07-07] MEDS ORDERED: Fentanyl 250 MCG/5 ML VIAL ONE ×2 (10:10→13:50)
[2017-07-07] MEDS ORDERED: Sodium Chloride 0.9% 10 ML ONE (11:27)
[2017-07-07] MEDS ORDERED: Promethazine HCl 25 MG/ML VIAL IM PRN ×3 (13:39→17:14)
[2017-07-07] MEDS ORDERED: Promethazine HCl 25 MG/ML VIAL SLOW IVP PRN (13:39)
[2017-07-07] MEDS ORDERED: Ondansetron HCl/PF 4 MG/2 ML Vial IVP PRN ×3 (13:39→17:14)
[2017-07-07] MEDS ORDERED: diphenhydrAMINE 25 MG CAP PO PRN (13:40)
[2017-07-07] MEDS ORDERED: Fentanyl 5000 MCG/250 ML CADD IVPB PRN (13:40)
[2017-07-07] MEDS ORDERED: Naloxone HCl 0.4 mg/ml Vial IV PRN (13:40)
[2017-07-07] MEDS ORDERED: diphenhydrAMINE 50 MG/ML VIAL IM PRN (13:40)
[2017-07-07] MEDS ORDERED: diphenhydrAMINE 50 MG/ML VIAL IVP PRN (13:40)
[2017-07-07] MEDS ORDERED: Zolpidem Tartrate 5 MG TAB PO PRN (13:40)
[2017-07-07] MEDS ORDERED: Communication Order-Pharmacy FS SCH (13:45)
[2017-07-07] MEDS ORDERED: Promethazine HCl 25 MG/ML VIAL ONE (14:18)
[2017-07-07] MEDS ORDERED: Ondansetron HCl/PF 4 MG/2 ML Vial ONE (16:16)
[2017-07-07] MEDS ORDERED: Ketorolac Tromethamine 30 MG/ML VIAL ONE (16:16)
[2017-07-07] MEDS ORDERED: Glycopyrrolate 0.2 MG/ML 5 ML SYRINGE ONE (16:16)
[2017-07-07] MEDS ORDERED: Lidocaine 1% PF 5 ML VIAL ONE (16:16)
[2017-07-07] MEDS ORDERED: Propofol 200 MG/20 ML VIAL ONE (16:16)
[2017-07-07] MEDS ORDERED: Phenylephrine 10 MG/NS 250 ML 250 ML IVPB PRN (17:14)
[2017-07-07] MEDS ORDERED: Acetaminophen 325 MG TAB PO PRN (17:14)
[2017-07-07] MEDS ORDERED: HYDROcodone/Acetaminophen 5/325 mg Tablet PO PRN ×2 (17:14)
[2017-07-07] MEDS ORDERED: hydrALAZINE 20 MG/ML VIAL SLOW IVP PRN (17:14)
--- NOTE | 2017-07-07 19:15 | RAD ---
FRONTAL RADIOGRAPH CHEST: 07/07/17 COMPARISON: 07/04/17 HISTORY: Evaluate chest following chest tube placement. FINDINGS: There has been placement of two chest tubes on the right, one overlying the right lung base, and one extending into the right lung apex. No significant pneumothorax, pleural fluid, focal consolidation, or alveolar edema. IMPRESSION: Interval placement of two right sided chest tubes. POS: H
--- NOTE | 2017-07-07 19:38 | OP ---
PREOPERATIVE DIAGNOSIS: Loculated right parapneumonic empyema. SURGEON: Louis Solano M.D. SAS SQL DEVELOPER: None. POSTOPERATIVE DIAGNOSIS: Loculated right parapneumonic empyema. SPONGE AND NEEDLE COUNTS: Correct. ANESTHESIA: General. OPERATION PERFORMED: Total right pulmonary decortication. FINDINGS AT OPERATION: Yellow-green fluid and gelatinous and exudative debris. SPECIMENS: Sent for culture. DESCRIPTION OF OPERATION: The patient was taken to the operating room. Following the induction of general endotracheal anesthesia utilizing a double lumen tube, the patient was positioned with his left side down and taped and padded appropriately. The patient was then prepped and draped in the usual sterile fashion. A port hole incision was made inferior to the scapular tip. Thoracoscope was introduced. A second more posterior superior port hole incision was made with introduction of the ring forceps. Loculations were broken down with retrieval of yellow-green fluid and debris. Unfortunately at this time, oxygen saturations could not be maintained. The second port hole incision was, therefore, extended to create an abbreviated thoracotomy via the auscultatory triangle. A small retractor was placed. Total pulmonary decortication was quickly performed. Ultimately, the entire right lung and fissures were isolated. Copious irrigation was performed. Hemostasis was assured. Via the initial port hole incision and an adjacent stab incision, 32- Sammarinese right angle and straight chest tubes were placed. These were connected to pleurovac suction. Chest wall was reapproximated with interrupted #1 Vicryl paracostal sutures after observing full reinflation of the right lung. Soft tissues were reapproximated anatomically with a combination of running 0 and 2- 0 Vicryl sutures. Skin was closed with a 3-0 Vicryl subcuticular stitch. Dermabond was applied. The patient was subsequently awakened, extubated, and taken to the recovery room. Blood loss negligible. MTDD
[2017-07-07] MEDS: Ketorolac Tromethamine 30 MG/ML VIAL IVP PRN (20:28)
[2017-07-07] MEDS: Famotidine 20 MG TAB PO SCH (20:41)
[2017-07-08 04:48] LABS: #Lymphocytes 1.5 thou/uL (1.20-3.40); #Monocytes 1.6 thou/uL (0.11-0.59); %Basophils 0.1 % (0.0-1.0); %Eosinophils 0.2 % (0.0-10.0); %Lymphocytes 5.8 % (28.0-48.0); %Monocytes 6.3 % (0.0-4.0); Hematocrit 43.6 % (42.0-52.0); Red Blood Cell (RBC) Count 4.69 mill/uL (4.00-5.20); White Blood Cell (WBC) Count 26.3 thou/uL (4.8-10.8)
[2017-07-08 05:27] LABS: Anion Gap 14 mmol/L (10-20); BUN (Urea Nitrogen) 16 mg/dL (8.4-21.0); Calc. Creatinine Clearance 182 mL/min (70-130); Calcium 9.5 mg/dL (7.8-10.44); Carbon Dioxide 31 mmol/L (22-29); Chloride 95 mmol/L (98-107); Estimated GFR-MDRD Greater than 90
[2017-07-08] MEDS: Cefepime 2 GM, Syringe 2.5 ML in Sterile Water 10 ML SLOW IVP SCH ×2 (07:00→19:57)
--- NOTE | 2017-07-08 07:54 | PRG ---
DATE OF SERVICE: 07/08/2017 SUBJECTIVE: The patient is resting with eyes closed. His friend is not here this morning. He has g ot oxygen on. PHYSICAL EXAMINATION: VITAL SIGNS: Upon evaluation, his blood pressure is 120/50, pulse 70, respirations 16, temperature 9 7.9. NECK: Supple with no increased JVP or carotid bruit. Carotid had good upstroke with no thyromegaly. COR: Regular rate and rhythm. CHEST: Symmetrical. Clear to auscultation and percussion in upper lobes. ABDOMEN: Soft, nontender with hypoactive bowel sounds, no bruit or organomegaly. EXTREMITIES: No edema or cyanosis. He had SCDs and AUREA hose. He had palpable pedal pulses. SKIN: There is no evidence of ulcers, lesion, or rash. NEUROLOGIC: He is resting comfortably. He did have a chest tube in also and dressing for thoracotom y side. LABORATORY DATA: Showed white blood cell to be 26.3, his H&H is normal. Sodium 135, BUN and creatin ine are normal. ASSESSMENT: 1. Empyema, status post pulmonary decortication. 2. Pneumonia. PLAN: All consultants are following this patient. Hopefully, the patient will able to go to the [facility] or when all feel like it is okay to. This is BRAYAN Barrow-Zainab dictating for Dr. Harlan Moore.
[2017-07-08] MEDS: Famotidine 20 MG TAB PO SCH ×2 (09:28→19:57)
[2017-07-08] MEDS: Famotidine/PF 20 mg/2ml Vial SLOW IVP SCH (09:28)
[2017-07-08] MEDS: Clindamycin/D5W 600 MG in Premix Bag 1 BAG IVPB SCH ×3 (09:43→23:25)
--- NOTE | 2017-07-08 10:36 | RAD ---
1 VIEW CHEST: Date: 07/08/17 HISTORY: Status post thoracotomy. COMPARISON: 07/07/17. FINDINGS: Stable cardiac silhouette and stable left lung. Stable right-sided chest tube. No significant pneumot horax. IMPRESSION: No significant change. POS: [facility]
--- NOTE | 2017-07-08 11:17 | PRG ---
DATE OF SERVICE: 07/08/2017 SERVICE: Pulmonary Medicine. INTERVAL HISTORY: The patient did well after decortication. He has a considerable amount of pain. That being said, he is under good control with TRAFFIC MANAGER. He denies any current fevers, chills, nausea or vomiting. I watched him at bedside sleeping. He had significant apneas. This has likely contribute d to his underlying medical condition today. PHYSICAL EXAMINATION: VITAL SIGNS: Afebrile, pulse 91, blood pressure 107/49, respirations 18, saturation 97% on -08/01 lit ers nasal cannula. GENERAL: The patient is awake and alert, in no apparent distress. LUNGS: Decent air entry. Rhonchi are present on the right. No prolonged expiratory phase or wheezi ng is appreciated. HEART: Normal rate, regular. ABDOMEN: Soft, nontender, nondistended, bowel sounds positive. MUSCULOSKELETAL: No cyanosis or clubbing. No pitting in the bilateral lower extremities. NEUROLOGIC: Grossly nonfocal. LABORATORY DATA: WBC 26.3 and gently downtrending, hemoglobin 14.0, platelets 349,000. Basic metabo lic profile is essentially unremarkable with a bicarbonate of 31, chloride 95, and sodium 135. Liver function studies were previously unremarkable. Pleural fluid was previously consistent with a neutr ophilic exudate. All cultures are negative to date. IMAGING: Chest x-ray demonstrates right-sided chest tube x2 are in good position. There is good aer ation of the bilateral lungs. No significant pleural or parenchymal abnormalities truthfully identif ied. ASSESSMENT: 1. Acute hypoxic respiratory failure, resolved. 2. Community-acquired pneumonia. 3. Complicated parapneumonic pleural effusion. 4. Obstructive sleep apnea, witnessed at bedside while on TRAFFIC MANAGER PLAN: The patient will be transitioned to the surgical unit at this time. We will continue antibiot ics. The chest tube will be removed on surgeries timeline. Pulmonary Critical Care will continue to follow while the patient remains in house. Ultimately on discharge, he will certainly need to be se t up for an evaluation for sleep apnea as this likely contributes to his underlying condition.
[2017-07-08] MEDS: Sodium Chloride 0.9% 1,000 ML IV SCH (12:51)
[2017-07-09] MEDS: Cefepime 2 GM, Syringe 2.5 ML in Sterile Water 10 ML SLOW IVP SCH ×2 (05:41→17:55)
[2017-07-09] MEDS: Famotidine/PF 20 mg/2ml Vial SLOW IVP SCH (10:03)
[2017-07-09] MEDS: Clindamycin/D5W 600 MG in Premix Bag 1 BAG IVPB SCH ×2 (10:03→15:33)
[2017-07-09] MEDS: Sodium Chloride 0.9% 1,000 ML IV SCH ×2 (10:04→20:35)
[2017-07-09] MEDS: Famotidine 20 MG TAB PO SCH ×2 (10:04→20:36)
--- NOTE | 2017-07-09 10:17 | RAD ---
CHEST 1 VIEW: Date: 07/09/17 COMPARISON: 07/08/17. HISTORY: Status post thoracotomy. FINDINGS: Stable right-sided chest tubes. Stable cardiac silhouette and stable aeration left lung. IMPRESSION: No significant interval change. POS: STEFAN
[2017-07-09] MEDS ORDERED: ALPRAZolam 0.25 MG TAB PO PRN (11:20)
--- NOTE | 2017-07-09 15:27 | PRG ---
DATE OF SERVICE: 07/09/2017 This is JOSIE Barrow dictating a progress note for Harlan Moore M.D SUBJECTIVE: Patient is resting. His friend is at bedside. PHYSICAL EXAMINATION: VITAL SIGNS: Stable with blood pressure 107/71, pulse 90, respirations 20, afebrile. NECK: Supple with no increased JVP or carotid bruit. Carotid had good upstroke with no thyromegaly. COR: Regular rate and rhythm. CHEST: Symmetrical, upper lobes clear. He does have a chest tube. ABDOMEN: Soft, nontender with normoactive bowel sounds. There is no bruit or organomegaly. EXTREMITIES: No edema or cyanosis. He had palpable pedal pulses. SKIN: There is no evidence of ulcers, lesion, or rash. NEUROLOGIC: He is resting. Did not awaken him. LABORATORY DATA AN IMAGING DATA: There is no lab in the chart today. Chest x-ray is pending. ASSESSMENT: 1. Empyema status post decortication. 2. Recent pneumonia. PLAN: We will follow up with CBC and CMP in the morning and also chest x-ray.
--- NOTE | 2017-07-09 20:17 | PRG ---
DATE OF SERVICE: 07/09/2017 SERVICE: Pulmonary Medicine. INTERVAL HISTORY: The patient is doing okay from a respiratory standpoint. Unfortunately, his pain is under suboptimal control. It is preventing him from taking a deep breath or coughing. That being said, when he uses his SENIOR CHEMIST, he becomes so somnolent that he does not take deep breaths. We are havi ng a difficult time following that happy medium. Otherwise, there has been no significant events. PHYSICAL EXAMINATION: VITAL SIGNS: Afebrile, pulse 117, blood pressure 112/58, respirations 20, saturation 94% on room air . GENERAL: The patient is awake and alert, no apparent distress. LUNGS: Decreased air entry. There is no prolonged expiratory phase. Crackles are present on the ri ght. HEART: Tachycardic. Regular. ABDOMEN: Soft, nontender, nondistended. Bowel sounds positive. MUSCULOSKELETAL: No cyanosis or clubbing. There is no pitting in the bilateral lower extremities. NEUROLOGIC: Grossly nonfocal. LABORATORY DATA: All culture results are negative to date. IMAGING: Chest x-ray demonstrates 2 right-sided thoracostomy drains in good position. There is no a cute intraparenchymal abnormality otherwise identified. ASSESSMENT: 1. Acute hypoxic respiratory failure, resolved. 2. Community-acquired pneumonia, improving. 3. Complicated parapneumonic pleural effusion. 4. Obstructive sleep apnea, witnessed at bedside while on patient-controlled analgesia. PLAN: The patient will continue his SENIOR CHEMIST for the time being. I would like for him to use this thing if he is not taking deep breaths secondary to pain. That being said, if we continue to be sedated at the point of adequate pain control, perhaps we need to consider a block or different agent. Bia albarran will continue to follow along. Hopefully, over the next 24 to 48 hours, some of his inflammation and pain will improve. I will repeat a basic metabolic profile, and CBC in the morning to make certa in the white blood cell count is dropping.
[2017-07-10] MEDS: Clindamycin/D5W 600 MG in Premix Bag 1 BAG IVPB SCH ×4 (00:20→22:40)
[2017-07-10 05:48] LABS: #Basophils 0.1 thou/uL (0.0-0.2); #Eosinphils 0.3 thou/uL (0.0-0.7); #Lymphocytes 2.4 thou/uL (1.20-3.40); #Monocytes 1.5 thou/uL (0.11-0.59); #Neutrophils 15.5 thou/uL (1.40-6.50); %Basophils 0.5 % (0.0-1.0); %Eosinophils 1.7 % (0.0-10.0); %Monocytes 7.5 % (0.0-4.0); Hematocrit 43.1 % (42.0-52.0); Mean Platelet Volume 6.1 fL (7.4-10.4); Red Blood Cell (RBC) Count 4.69 mill/uL (4.00-5.20); White Blood Cell (WBC) Count 19.8 thou/uL (4.8-10.8)
[2017-07-10] MEDS: Cefepime 2 GM, Syringe 2.5 ML in Sterile Water 10 ML SLOW IVP SCH ×2 (05:59→18:22)
[2017-07-10 06:13] LABS: ALT (SGPT) 29 U/L (8-55); AST (SGOT) 24 U/L (10-45); Alkaline Phosphatase 63 U/L (Less than 750); Anion Gap 12 mmol/L (10-20); BUN (Urea Nitrogen) 16 mg/dL (8.4-21.0); Bilirubin, Total 0.5 mg/dL (0.2-1.2); Calc. Creatinine Clearance 177 mL/min (70-130); Calcium 9.2 mg/dL (7.8-10.44); Carbon Dioxide 32 mmol/L (22-29); Chloride 95 mmol/L (98-107); Estimated GFR-MDRD Greater than 90; Globulin 3.2 g/dL (2.4-3.5); Protein, Total 6.3 g/dL (6.0-8.3)
--- NOTE | 2017-07-10 08:41 | PRG ---
DATE OF SERVICE: 07/10/2017 He is mainly having problems with pain on the right side. His chest tube has been removed. PHYSICAL EXAMINATION: VITAL SIGNS: Temperature 99.3, pulse 103, respiratory rate 16, O2 sat 94%, blood pressure 117/73. HEENT: Unremarkable. NECK: No JVD. CHEST: Fairly clear. CARDIAC: S1 and S2 regular. ABDOMEN: Soft. EXTREMITIES: No edema. LABORATORY DATA: White blood cell count 19.8, hematocrit 43.1, platelet count 333. Sodium 135, pota ssium 3.8, chloride 95, CO2 32, BUN 15, creatinine 0.7, glucose 94. ASSESSMENT: 1. Right-sided empyema/peripneumonic effusion. 2. Status post decortication. 3. Status post pneumonia. PLAN: 1. The patient needs to walk around. 2. Once his pain is controlled with oral medications he can probably go home. 3. At the time of discharge, he can be converted over to Augmentin, he needs to complete 14 days of total treatment.
--- NOTE | 2017-07-10 08:53 | RAD ---
SINGLE VIEW OF CHEST: Date: 07/10/17 COMPARISON: 07/09/17. HISTORY: Chest tube removal with pneumothorax. FINDINGS: Single view of the chest shows normal sized cardiomediastinal silhouette. The right-sided chest tubes have been removed. No pneumothorax is seen. There is blunting of the right costophrenic angle which may represent a small pleural effusion. IMPRESSION: 1. Status post chest tube removal without evidence of pneumothorax. 2. Small right pleural effusion. POS: [facility]
[2017-07-10] MEDS: Famotidine 20 MG TAB PO SCH ×2 (09:26→22:27)
[2017-07-10] MEDS: Famotidine/PF 20 mg/2ml Vial SLOW IVP SCH (09:27)
[2017-07-10] MEDS: Ketorolac Tromethamine 30 MG/ML VIAL IVP PRN (10:56)
[2017-07-10] MEDS ORDERED: traMADol HCl 50 MG TAB PO PRN ×2 (11:26)
[2017-07-10] MEDS ORDERED: Fentanyl 100 MCG/2 ML VIAL SLOW IVP PRN (11:27)
[2017-07-10] MEDS ORDERED: HYDROcodone/Acetaminophen 5/325 mg Tablet PO PRN (11:27)
[2017-07-10] MEDS: Ketorolac Tromethamine 30 MG/ML VIAL IVP SCH ×3 (13:00→22:40)
[2017-07-10] MEDS: HYDROcodone/Acetaminophen 5/325 mg Tablet PO PRN ×2 (13:06→18:39)
[2017-07-10] MEDS ORDERED: HYDROcodone/Acetaminophen 10/325 mg Tablet PO PRN (20:51)
[2017-07-10] MEDS: HYDROcodone/Acetaminophen 10/325 mg Tablet PO PRN (22:28)
[2017-07-11] MEDS: HYDROcodone/Acetaminophen 10/325 mg Tablet PO PRN ×4 (02:47→21:47)
[2017-07-11] MEDS: Sodium Chloride 0.9% 1,000 ML IV SCH ×2 (02:55→23:20)
[2017-07-11] MEDS: Cefepime 2 GM, Syringe 2.5 ML in Sterile Water 10 ML SLOW IVP SCH (04:38)
[2017-07-11] MEDS: Ketorolac Tromethamine 30 MG/ML VIAL IVP SCH ×4 (04:39→23:11)
--- NOTE | 2017-07-11 08:07 | PRG ---
DATE OF SERVICE: 07/11/2017 SUBJECTIVE: His pain is better. He ambulated yesterday. PHYSICAL EXAMINATION: VITAL SIGNS: His temperature is 98.0, pulse 93, respiratory rate 20, O2 saturation 98%, blood pressu re 110/67. HEENT: Unremarkable. NECK: No JVD. CHEST: Clear. CARDIAC: S1 and S2 regular. ABDOMEN: Soft. EXTREMITIES: No edema. X-RAY FINDINGS: Chest x-ray from yesterday shows expected blunting in the right costophrenic angle. ASSESSMENT: 1. Empyema. 2. Status post decortication. PLAN: From my standpoint, he is cleared to go home. He will require pain medication at home. He wi ll need to follow up in about 1 month and have his chest x-ray repeated.
[2017-07-11] MEDS: Famotidine/PF 20 mg/2ml Vial SLOW IVP SCH (08:37)
--- NOTE | 2017-07-11 08:38 | PRG ---
DATE OF SERVICE: 07/11/2017 SUBJECTIVE: The patient had a good night. He is actually getting out of bed and moving around a lit tle bit. His pain is better controlled. He feels like he is not ready to go home yet, would prefer to go home tomorrow morning. PHYSICAL EXAMINATION: GENERAL: He is awake, alert, and oriented to person, place and time. VITAL SIGNS: Blood pressure is excellent 110/67, pulse 93, respirations 20, temperature 98.0. NECK: Supple with no increased JVP or carotid bruit. Carotid had good upstroke with no thyromegaly. COR: Regular rate and rhythm. No murmur, S3, S4, or thrills. CHEST: Symmetrical. Clear to auscultation and percussion. ABDOMEN: Soft, nontender with normoactive bowel sounds. There is no bruit or organomegaly. EXTREMITIES: No edema or cyanosis. He had palpable pedal pulses. SKIN: There is no evidence of ulceration lesion, or rash. NEUROLOGIC: He is awake, alert, and oriented to person, place, and time. LABORATORY DATA: His white blood cell count is much better from 26,000 to 19,000. His H&H is normal at 14.0 and 43.1. His platelet count is 333. His CMP shows sodium 135, BUN and creatinine are norm al. ASSESSMENT: 1. Empyema status post decortication. 2. Recent pneumonia. PLAN: I would like to keep the patient 1 more day as we are seeing a trend in his white blood cell c ount, plus the patient will be flying back home out of state to go be with his family for [place]. The patient is in agreement with this. We will follow up with lab in the morning. I have also enco uraged the patient to continue to get out of bed, turn, cough and deep breathe and also use his IS. The patient verbalized understanding and all questions answered to satisfaction.
[2017-07-11] MEDS: Amoxicillin/Potassium Clav 875 MG TAB PO SCH ×2 (09:22→21:48)
[2017-07-11] MEDS: Famotidine 20 MG TAB PO SCH ×2 (09:22→21:48)
[2017-07-12] MEDS: HYDROcodone/Acetaminophen 10/325 mg Tablet PO PRN ×2 (04:53→09:18)
[2017-07-12] MEDS: Ketorolac Tromethamine 30 MG/ML VIAL IVP SCH (04:53)
[2017-07-12 05:41] LABS: #Eosinphils 0.5 thou/uL (0.0-0.7); #Lymphocytes 2.6 thou/uL (1.20-3.40); #Monocytes 0.7 thou/uL (0.11-0.59); #Neutrophils 6.9 thou/uL (1.40-6.50); %Basophils 0.4 % (0.0-1.0); %Eosinophils 4.6 % (0.0-10.0); %Lymphocytes 23.9 % (28.0-48.0); %Monocytes 6.4 % (0.0-4.0); Red Blood Cell (RBC) Count 4.32 mill/uL (4.00-5.20); White Blood Cell (WBC) Count 10.7 thou/uL (4.8-10.8)
[2017-07-12] MEDS: Famotidine 20 MG TAB PO SCH (09:18)
[2017-07-12] MEDS: Amoxicillin/Potassium Clav 875 MG TAB PO SCH (09:18)
[2017-07-12] MEDS: Famotidine/PF 20 mg/2ml Vial SLOW IVP SCH (09:24)
--- NOTE | 2017-07-12 12:10 | PRG ---
DATE OF SERVICE: 07/12/2017 SUBJECTIVE: He feels better. He is still having some mild pain on the right side. OBJECTIVE: VITAL SIGNS: Temperature 98.2, pulse 89, respiration rate 16, O2 sat 99%, blood pressure 120/75. HEENT: Unremarkable. NECK: No JVD. CHEST: Clear, surgical scar well healed. CARDIAC: S1 and S2 regular. ABDOMEN: Soft. EXTREMITIES: No edema. LABORATORY DATA: White blood cell count 10.7, hematocrit 40, platelet count 299. Sodium 135, potass ium 3.8, chloride 95, CO2 of 32, BUN 16, creatinine 0.7, glucose 94. Cultures are sterile to date. ASSESSMENT: 1. Right-sided empyema/peripneumonic fusion. 2. Status post pneumonia. PLAN: Would complete a total of 14 days of antibiotics between IV and p.o. He is currently on Augme ntin, so I will probably send him home with 7 more days of Augmentin. He needs to followup in about a month and have his chest x-ray repeated. He could get this follow up done in [place]. I do not see any problems in flying on Monday, but he needs to get up and walk around fairly often while he i s on the plane.
[2017-07-12 16:53] VITALS: BP 115/68; TEMP 97.8
== END 2017-07-12 17:17 | disposition home or self-care (01) | DRG 163 ==
LOC: 3SE 13:53 → CCU 07-07 15:49 → SURG B 07-08 13:49
PROVIDERS: ADMIT Specialist; ATTEND Specialist
PROC: 0W993ZX Drainage of Right Pleural Cavity, Percutaneous Approach, Diagnostic (ICD-10-PCS; principal; 2017-07-05)
PROC: 0BCK0ZZ Extirpation of Matter from Right Lung, Open Approach (ICD-10-PCS; 2017-07-07)
PROC: 0W9900Z Drainage of Right Pleural Cavity with Drainage Device, Open Approach (ICD-10-PCS; 2017-07-07)
DX: J18.9 Pneumonia, unspecified organism (principal); J86.9 Pyothorax without fistula; J96.01 Acute respiratory failure with hypoxia; J91.8 Pleural effusion in other conditions classified elsewhere; G47.33 Obstructive sleep apnea (adult) (pediatric)
CPT/HCPCS: 32554; 36415; 71010; 71020; 71250; 80048; 80053; 82150; 82945; 83615; 83986; 84157; 84478; 85007; 85025; 85027; 85060; 87040; 87070; 87102; 87116; 87205; 87206; 88112; 88305; 89051; 94640; A4216; G8978-GP-CK; G8979-GP-CK; G8980-GP-CK; J0692; J1642; J1885; J1956; J2001; J2250; J2405; J2550; J2704; J2920; J3010; J3490; J7620; S0028

== ENCOUNTER 2017-08-17 12:36 | Outpatient (CLI) | payer BC ==
--- NOTE | 2017-08-17 13:04 | RAD ---
TWO VIEW CHEST: History: Dyspnea. Comparison: 07-10-17 FINDINGS: Lungs are clear of infiltrate. Heart and mediastinum appear normal. Osseous structures are unremarkab le. There is a slight scoliotic curvature of the thoracic spine, convexity to the right, which appear s stable from prior chest exam. IMPRESSION: No acute process identified. POS: [facility]
== END 2017-08-17 12:37 | disposition home or self-care (01) ==
LOC: RAD 12:36
PROVIDERS: ATTEND Internal Medicine Critical Care Medicine
DX: R06.00 Dyspnea, unspecified (principal)
CPT/HCPCS: 71046